=== PATIENT | female | born 1960 | race Caucasian/White ===

== ENCOUNTER 2020-05-15 14:03 | Emergency (ER) | payer MEDICAID ==
[~2020-05-15] VITALS: Ht 165.1 cm; Wt 63.6 kg
[2020-05-15 14:18] VITALS: BP 112/80
[2020-05-15] MEDS ORDERED: LIDOcaine 1% W/epiNEPHrine 1:200,000 10ml vial IJ ONE (16:00)
[2020-05-15] MEDS ORDERED: TETanus/Pertussis (Acell)/Diphther VAC/PF (Tdap-Adult) 0.5ml syringe IMVAC ONE (16:00)
== END 2020-05-15 16:48 | disposition home or self-care (01) ==
LOC: ER 14:04
DX: S51.012A Laceration without foreign body of left elbow, initial encounter (principal); I10 Essential (primary) hypertension; W45.8XXA Other foreign body or object entering through skin, initial encounter; Y93.89 Activity, other specified; Y92.89 Other specified places as the place of occurrence of the external cause; Y99.8 Other external cause status
CPT/HCPCS: 12032; 90471; 90715; 99283; 99284

== ENCOUNTER → 2020-05-24 | Emergency (ER) | payer MEDICAID ==
[~2020-05-24] VITALS: Ht 162.6 cm; Wt 61.4 kg
[2020-05-24 11:12] VITALS: BP 125/88
== END | disposition home or self-care (01) ==
LOC: ER 11:11
DX: S51.802D Unspecified open wound of left forearm, subsequent encounter (principal); I10 Essential (primary) hypertension; F17.200 Nicotine dependence, unspecified, uncomplicated; Z98.890 Other specified postprocedural states; X58.XXXD Exposure to other specified factors, subsequent encounter
CPT/HCPCS: 99281

== ENCOUNTER 2024-10-04 14:20 | Outpatient (CLI) | payer MEDICAID ==
--- NOTE | 2024-10-04 17:41 | RADIOLOGY REPORT ---
PROCEDURE: MR MRI LUMBAR SPINE INDICATION: SPINAL STENOSIS, LUMBAR REGION WITHOUT NEUROGENIC LINDY Exam Date: 10/04/2024 02:32 PM COMPARISON: None TECHNIQUE: MRI lumbar spine without intravenous contrast. FINDINGS: Limited by motion. Grade 1 anterolisthesis of L5 on S1. There are degenerative endplate changes including modic endpla te changes with anterior and lateral osteophytes throughout the lumbar spine. The visualized distal s jasno cord and conus medullaris are within normal limits. The conus medullaris appears to terminate within normal limits. The visualized retroperitoneal and paraspinal soft tissues are unremarkable. D iffuse epidural lipomatosis. The following axial levels are detailed below: T12-L1: Unremarkable. L1-L2: There is a mild circumferential disc bulge. No significant central canal or neuroforaminal s tenosis. L2-L3: Unremarkable. L3-L4: There is a severe circumferential disc bulge complicated by facet arthropathy narrowing the central canal to 5 mm with associated moderate to severe bilateral neuroforaminal stenosis. L4-L5: There is a severe circumferential disc bulge complicated by facet arthropathy narrowing the central canal to 4 mm with associated moderate to severe bilateral neuroforaminal stenosis. L5-S1: There is a severe circumferential disc bulge complicated by facet arthropathy narrowing the c entral canal to 5 mm with associated moderate to severe bilateral neuroforaminal stenosis. IMPRESSION: 1. 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 Grade 1 anterolisthesis of L5 on S1. Severe central canal stenosis L3-4 through L5-S1. Neural foraminal stenosis as above. HS:Y
== END 2024-10-04 23:59 | disposition home or self-care (01) ==
LOC: MRI02 14:20
PROVIDERS: ATTEND Nurse Practitioner
DX: M51.369 Other intervertebral disc degeneration, lumbar region without mention of lumbar back pain or lower extremity pain (principal); M43.17 Spondylolisthesis, lumbosacral region; M48.07 Spinal stenosis, lumbosacral region
CPT/HCPCS: 72148